=== PATIENT | female | born 1950 | race Caucasian/White ===

== ENCOUNTER → 2016-02-26 | Outpatient (CLI) | payer MEDICARE ==
[~2016-02-26] MED LIST: CHEWABLE ASPIRI81 M1 PO; LIPITOR20 M1 PO; PREMARIN0.625 MG PO; VITAMIN D2000 IU PO
--- NOTE | 2016-03-07 07:53 | RADIOLOGY REPORT PS360 ---
EXAM: CT LUNG LOW DOSE WO CONTRAST COMPARISON: None HISTORY: 66-year-old asymptomatic female with greater than 30 pack-year smoking history TECHNIQUE: The exam was performed on a [employer] Light Speed [address] scanner using 2.93 mGy CTDI. A low dose helical CT CHEST was performed on a multi-detector scanner The LDCT was performed in a facility that meets the criteria for the screening program. Data regarding this exam was submitted to [employer] which is an approved registry. The order for this exam indicates that it came as a result of a lung cancer screening counseling shard decision-making visit that included all the elements required of such a visit including smoking cessation. The radiologist interpreting this exam meets the [facility] criteria for the LDCT lung cancer screening program. The exam is reported using the Lung-RADS classification scale and reported to the [employer] registry. NOTE: This study was performed for the specific purposes of lung cancer screening and is not an alternative to diagnostic chest CT. RADIATION DOSE: CTDI vol(CT dose Index-volume) = 2.93mG DLP (Dose Length Product) = 105.57 mGcm FINDINGS: Indeterminate or Suspicious Lung Nodules(Category3-4B): 6 x 5 mm noncalcified nodule right midlung laterally which appears within the plane of the minor fissure probably benign Indeterminate/Non-actionable Nodules(Category2): Multiple subpleural nodular opacities on both thighs less than 6 mm. 4 mm and 3 mm noncalcified nodule right lower lobe laterally. 5 mm noncalcified nodule right lower lobe inferiorly and laterally Benign nodules(Category1)scattered calcified nodules LUNG PARENCHYMA Emphysema: Mild centrilobular emphysematous changes Airways disease: Hyperinflation with attenuation of peripheral pulmonary vessels and bronchial thickening consistent with obstructive chronic bronchitis Fibrosis: Biapical fibrosis OTHER ANATOMIC REGIONS Lymph Nodes: No enlarged lymph nodes evident. Scattered small nodes are present in the mediastinum and haile Pleura: Unremarkable Cardiac: Coronary artery calcification OTHER FINDINGS: No other pertinent findings evident IMPRESSION: 1. Lung RADS Category: 3 probably benign 2. Other findings: Obstructive chronic bronchitis, old granulomatous disease RECOMMENDATIONS: 6 monthd LDCT follow-up
== END ==
LOC: RAD 13:31
DX: Z87.891 Personal history of nicotine dependence (principal)
CPT/HCPCS: G0297

== ENCOUNTER → 2016-11-08 | Outpatient (CLI) | payer MEDICARE ==
[~2016-11-08] MED LIST changes: +LEVAQUIN 750 M750 MG PO
--- NOTE | 2016-11-08 14:26 | RADIOLOGY REPORT PS360 ---
CHEST(2 VIEWS-NOT PORTABLE) HISTORY: Follow-up pneumonia S/P PNEUMONIA, RT ORDERING PHYSICIAN: Geronimo Lange MD PATIENT AGE: 66 years COMPARISON: 09/18/2016 FINDINGS: The cardiomediastinal silhouette and pulmonary vascularity are within normal limits. The lungs are clear without infiltrates, suspicious nodules, or pleural effusions. No acute bony abnormalities. Mild levoscoliosis with thoracic spondylosis IMPRESSION: No acute finding. Previously noted right lower lobe pneumonia has improved
== END ==
LOC: RAD 10:29
DX: J18.9 Pneumonia, unspecified organism (principal)

== ENCOUNTER → 2017-01-03 | Outpatient (CLI) | payer MEDICARE ==
--- NOTE | 2017-01-03 10:59 | RADIOLOGY REPORT PS360 ---
CHEST(2 VIEWS-NOT PORTABLE) HISTORY: F/U FROM PNEUMONIA ORDERING PHYSICIAN: Geronimo Lange MD PATIENT AGE: 66 years COMPARISON: 11/08/2016 FINDINGS: The cardiomediastinal silhouette and pulmonary vascularity are within normal limits. Patchy infiltrate is present in the left lower lobe. No effusions. The remaining lungs are clear. Mild thoracic scoliosis convex left. IMPRESSION: Patchy left lower lobe infiltrate
== END ==
LOC: RAD 09:50
DX: J18.9 Pneumonia, unspecified organism (principal)

== ENCOUNTER → 2017-01-13 | Outpatient (CLI) | payer MEDICARE ==
[2017-01-13 09:35] LABS: BUN 10 mg/dL (7-18)
[2017-01-13 09:36] LABS: GFR (ESTIMATED) 71 ML/MIN (59-)
--- NOTE | 2017-01-13 11:49 | RADIOLOGY REPORT PS360 ---
CT CHEST W/ CONTRAST COMPARISON: PA and lateral chest 11/08/2016 HISTORY: Suspect pneumonia left lung TECHNIQUE: Multiaxial scans obtained from the thoracic inlet to the hemidiaphragms and were performed with IV contrast. Sagittal coronal reformats were evaluated as well. FINDINGS: The lung key are well expanded. There is a tiny calcified granuloma left upper lobe. There is no pneumonic infiltrate. There is no pleural fluid. Cardiac size is normal with mild aortic tortuosity. There is no failure. There are mild degenerative changes mid to lower thoracic spine. IMPRESSION: Findings as described, no acute chest pathology identified
== END ==
LOC: RAD 09:05
PROVIDERS: Internal Medicine
DX: J18.9 Pneumonia, unspecified organism (principal); R91.8 Other nonspecific abnormal finding of lung field
CPT/HCPCS: Q9967